=== PATIENT | female | born 1945 | race Two or more races ===

== ENCOUNTER 2021-09-15 18:23 | Inpatient (IN) | payer MEDICARE, OTHER ==
[~2021-09-15] VITALS: Ht 160 cm; Wt 64.0 kg
[2021-09-15 19:12] LABS: Basophils # (auto) 0 10 ^3/uL (0-0.2); Basophils % (auto) 0.7 % (0.0-2.0); Eosinophils # (auto) 0.1 10 ^3/uL (0-0.8); Eosinophils % (auto) 1.8 % (0.0-7.0); Hematocrit 38.9 % (36.0-46.0); Hemoglobin 13.1 g/dL (12.2-16.2); Lymphocytes # (auto) 1.1 10 ^3/uL (0.4-5.4); Lymphocytes % (auto) 29.2 % (10.0-50.0); Mean Corpuscular Hemoglobin 29.2 pg (28.0-32.0); Mean Corpuscular Hgb Conc. 33.6 g/dL (32.0-36.0); Monocytes # (auto) 0.4 10 ^3/uL (0-1.3); Monocytes % (auto) 9.9 % (0.0-12.0); Neutrophils # (auto) 2.3 10 ^3/uL (1.6-8.6); Neutrophils % (auto) 58.4 % (37.0-80.0); Red Blood Cells 4.47 10^6/uL (4.0-5.20); Red Cell Distribution Width 14.9 % (11.8-14.3); White Blood Cell 3.9 10^3/uL (4.4-10.8)
[2021-09-15 19:28] LABS: Urine Bacteria FEW /hpf (None Seen); Urine Blood Negative /uL (Negative); Urine Hyaline Cast FEW /lpf (0 - 2); Urine Mucus FEW (None Seen); Urine WBC 6 /hpf (0 - 5)
[2021-09-15 19:30] LABS: Albumin 3.6 g/dL (3.4-5.0); Anion Gap 8 (5-15); Blood Alcohol < 3.0 mg/dL (0-5); Blood Urea Nitrogen 33 mg/dL (7-18); Calcium 8.9 mg/dL (8.5-10.1); Carbon Dioxide 22 mmol/L (21-32); Chloride 110 mmol/L (98-107); Glucose 115 mg/dL (74-106); Potassium 3.9 mmol/L (3.5-5.1); Sodium 140 mmol/L (136-145)
[2021-09-15 19:33] LABS: Alanine Aminotransferase 46 U/L (13-56); Alkaline Phosphatase 66 U/L (45-117); Aspartate Aminotransferase 30 U/L (15-37); BUN/Creatinine Ratio 21.7; Bilirubin, Total 0.8 mg/dL (0.2-1.0); GFR African American 43 mL/min; GFR Non-African American 35 mL/min; Total Protein 7.2 g/dL (6.4-8.2)
[2021-09-15 19:39] LABS: Alcohol, Urine < 3.0 mg/dL (0-10); Amphetamine Screen, Urine NEGATIVE (NEGATIVE); Barbiturate Scree,Urine NEGATIVE (NEGATIVE); Benzodiazephine Screen, Urine POSITIVE (NEGATIVE); Cannabinoid Screen, Urine NEGATIVE (NEGATIVE); Cocaine Screen, Urine NEGATIVE (NEGATIVE); Opiate Scree,Urine NEGATIVE (NEGATIVE); Phencyclidine Screen, Urine NEGATIVE (NEGATIVE)
[2021-09-15] MEDS ORDERED: IOHEXOL 350 MG/ML 100ML IJ ONE (20:33)
[2021-09-15 20:44] LABS: INR 1.02 (0.9-1.15); Partial Thromboplastin Time 23.2 sec (23.6-33.0)
[2021-09-15] MEDS ORDERED: SODIUM CHLORIDE 0.9% 1,000 ML IV ONE (23:30)
[2021-09-16] MEDS ORDERED: ONDANSETRON HCL 4 MG/2 ML VIAL IV PRN (00:45)
[2021-09-16] MEDS ORDERED: cloNIDine HCL 0.1 MG TAB PO PRN (00:45)
[2021-09-16] MEDS ORDERED: ACETAMINOPHEN 325 MG TAB PO PRN (00:45)
[2021-09-16 05:00] VITALS: BP 161/68
[2021-09-16 08:00] VITALS: BP 152/68
[2021-09-16] MEDS: cefTRIAXone 1GM/50ML D5W 50 ML IV SCH (09:24)
[2021-09-16] MEDS: amLODIPine BESYLATE 5 MG TAB PO SCH (09:24)
[2021-09-16] MEDS: MEMANTINE HCL 5 MG TAB PO SCH (09:25)
[2021-09-16] MEDS: SERTRALINE HCL 50 MG TAB PO SCH (09:25)
[2021-09-16] MEDS: ENOXAPARIN SOD 30 MG/0.3 ML SYRINGE SC SCH (09:25)
[2021-09-16] MEDS ORDERED: PANTOPRAZOLE 40 MG TAB PO SCH (10:00)
[2021-09-16 12:00] VITALS: BP 152/75
[2021-09-16] MEDS: SOD CHL 0.45% 1,000 ML IV SCH (13:30)
[2021-09-16] MEDS ORDERED: AZITHROMYCIN 250 MG TAB PO ONE (13:45)
[2021-09-16 16:00] VITALS: BP 145/68
[2021-09-16 21:52] VITALS: BP 151/72
[2021-09-17] MEDS: DONEPEZIL HYDROCHLORIDE 5 MG TAB PO SCH ×2 (00:27→23:51)
[2021-09-17] MEDS: MEMANTINE HCL 5 MG TAB PO SCH ×3 (00:28→22:00)
[2021-09-17] MEDS: ATORVASTATIN 20 MG TAB PO SCH ×2 (00:28→23:52)
[2021-09-17] MEDS: METOPROLOL TARTRATE 25 MG TAB PO SCH ×3 (00:31→23:52)
[2021-09-17] MEDS: SOD CHL 0.45% 1,000 ML IV SCH ×2 (02:50→18:30)
[2021-09-17 05:05] VITALS: BP 135/68
[2021-09-17 06:59] LABS: Basophils # (auto) 0 10 ^3/uL (0-0.2); Basophils % (auto) 0.7 % (0.0-2.0); Eosinophils # (auto) 0.1 10 ^3/uL (0-0.8); Eosinophils % (auto) 1.5 % (0.0-7.0); Hematocrit 37.3 % (36.0-46.0); Hemoglobin 12.3 g/dL (12.2-16.2); Lymphocytes # (auto) 0.7 10 ^3/uL (0.4-5.4); Lymphocytes % (auto) 21.4 % (10.0-50.0); Mean Corpuscular Hemoglobin 28.9 pg (28.0-32.0); Mean Corpuscular Hgb Conc. 33.1 g/dL (32.0-36.0); Mean Corpuscular Volume 87.5 fL (80.0-100.0); Monocytes # (auto) 0.3 10 ^3/uL (0-1.3); Monocytes % (auto) 9.6 % (0.0-12.0); Neutrophils # (auto) 2.2 10 ^3/uL (1.6-8.6); Neutrophils % (auto) 66.8 % (37.0-80.0); Red Blood Cells 4.26 10^6/uL (4.0-5.20); Red Cell Distribution Width 15.2 % (11.8-14.3); White Blood Cell 3.4 10^3/uL (4.4-10.8)
[2021-09-17 07:21] LABS: BUN/Creatinine Ratio 21.8; Calcium 8.4 mg/dL (8.5-10.1); Potassium 4.1 mmol/L (3.5-5.1)
[2021-09-17 09:00] VITALS: BP 123/76
[2021-09-17] MEDS ORDERED: PATIENTS OWN MEDICATION PO SCH (10:00)
[2021-09-17] MEDS ORDERED: SERTRALINE HCL 50 MG TAB PO SCH (10:00)
[2021-09-17] MEDS: ENOXAPARIN SOD 30 MG/0.3 ML SYRINGE SC SCH (10:35)
[2021-09-17] MEDS: AZITHROMYCIN 250 MG TAB PO SCH (10:36)
[2021-09-17] MEDS: SERTRALINE HCL 50 MG TAB PO SCH (10:40)
[2021-09-17] MEDS: amLODIPine BESYLATE 5 MG TAB PO SCH (10:43)
[2021-09-17] MEDS: TAGRISSO 80 MG PO SCH (10:45)
[2021-09-17] MEDS: cefTRIAXone 1GM/50ML D5W 50 ML IV SCH (11:34)
[2021-09-17 13:00] VITALS: BP 151/96
[2021-09-17 17:00] VITALS: BP 150/78
[2021-09-17 22:00] VITALS: BP 132/70
[2021-09-18 05:19] VITALS: BP 140/82
[2021-09-18 09:00] VITALS: BP 138/57
[2021-09-18] MEDS: cefTRIAXone 1GM/50ML D5W 50 ML IV SCH (10:37)
[2021-09-18] MEDS: METOPROLOL TARTRATE 25 MG TAB PO SCH ×2 (10:37→22:00)
[2021-09-18] MEDS: SERTRALINE HCL 50 MG TAB PO SCH (10:39)
[2021-09-18] MEDS: MEMANTINE HCL 5 MG TAB PO SCH ×2 (10:39→23:09)
[2021-09-18] MEDS: AZITHROMYCIN 250 MG TAB PO SCH (10:39)
[2021-09-18] MEDS: amLODIPine BESYLATE 5 MG TAB PO SCH (10:40)
[2021-09-18] MEDS: ENOXAPARIN SOD 40 MG/0.4 ML SYRINGE SC SCH (10:41)
[2021-09-18] MEDS: TAGRISSO 80 MG PO SCH (12:52)
[2021-09-18 13:00] VITALS: BP 108/54
[2021-09-18 17:00] VITALS: BP 108/71
[2021-09-18] MEDS: SOD CHL 0.45% 1,000 ML IV SCH (19:02)
[2021-09-18 22:00] VITALS: BP 99/51
[2021-09-18] MEDS: ATORVASTATIN 20 MG TAB PO SCH (23:00)
[2021-09-18] MEDS: DONEPEZIL HYDROCHLORIDE 5 MG TAB PO SCH (23:00)
[2021-09-19 05:00] VITALS: BP 133/74
[2021-09-19 09:00] VITALS: BP 94/56
[2021-09-19] MEDS: amLODIPine BESYLATE 5 MG TAB PO SCH (10:00)
[2021-09-19] MEDS: SERTRALINE HCL 50 MG TAB PO SCH (10:12)
[2021-09-19] MEDS: ENOXAPARIN SOD 40 MG/0.4 ML SYRINGE SC SCH (10:12)
[2021-09-19] MEDS: AZITHROMYCIN 250 MG TAB PO SCH (10:13)
[2021-09-19] MEDS: MEMANTINE HCL 5 MG TAB PO SCH ×2 (10:13→21:36)
[2021-09-19] MEDS: METOPROLOL TARTRATE 25 MG TAB PO SCH ×2 (10:14→21:36)
[2021-09-19] MEDS: cefTRIAXone 1GM/50ML D5W 50 ML IV SCH (10:15)
[2021-09-19] MEDS: TAGRISSO 80 MG PO SCH (10:54)
[2021-09-19 13:00] VITALS: BP 117/72
[2021-09-19] MEDS: SOD CHL 0.45% 1,000 ML IV SCH (15:37)
[2021-09-19 17:00] VITALS: BP 133/64
[2021-09-19 20:00] VITALS: BP 116/63
[2021-09-19 21:29] VITALS: BP 116/63
[2021-09-19] MEDS: ATORVASTATIN 20 MG TAB PO SCH (21:36)
[2021-09-19] MEDS: DONEPEZIL HYDROCHLORIDE 5 MG TAB PO SCH (21:36)
[2021-09-20 05:28] VITALS: BP 162/84
[2021-09-20 08:30] VITALS: BP 143/67
[2021-09-20 09:00] VITALS: BP 143/67
[2021-09-20] MEDS: SERTRALINE HCL 50 MG TAB PO SCH (09:55)
[2021-09-20] MEDS: AZITHROMYCIN 250 MG TAB PO SCH (09:56)
[2021-09-20] MEDS: MEMANTINE HCL 5 MG TAB PO SCH (09:57)
[2021-09-20] MEDS: amLODIPine BESYLATE 5 MG TAB PO SCH (09:59)
[2021-09-20] MEDS: ENOXAPARIN SOD 40 MG/0.4 ML SYRINGE SC SCH (10:00)
[2021-09-20] MEDS: cefTRIAXone 1GM/50ML D5W 50 ML IV SCH (10:02)
[2021-09-20] MEDS: METOPROLOL TARTRATE 25 MG TAB PO SCH (10:44)
[2021-09-20] MEDS: TAGRISSO 80 MG PO SCH (11:08)
[2021-09-20 12:38] VITALS: BP 134/71
[2021-09-20 13:46] VITALS: BP 134/71
[2021-09-20 16:46] VITALS: BP 140/69
== END 2021-09-20 17:30 | DRG 70 ==
LOC: EDBD 18:23 → ER 18:23 → OVERFLOW 09-16 00:39 → CENTRAL 09-16 03:00
PROVIDERS: ADMIT Nurse Practitioner; ATTEND Internal Medicine
DX: G93.41 Metabolic encephalopathy (principal); J18.9 Pneumonia, unspecified organism; N39.0 Urinary tract infection, site not specified; N17.9 Acute kidney failure, unspecified; C34.91 Malignant neoplasm of unspecified part of right bronchus or lung; E78.5 Hyperlipidemia, unspecified; M16.0 Bilateral primary osteoarthritis of hip; N18.9 Chronic kidney disease, unspecified; E86.0 Dehydration; I12.9 Hypertensive chronic kidney disease with stage 1 through stage 4 chronic kidney disease, or unspecified chronic kidney disease; F32.A Depression, unspecified; Z20.822 Contact with and (suspected) exposure to COVID-19; G30.9 Alzheimer's disease, unspecified; F02.80 Dementia in other diseases classified elsewhere, unspecified severity, without behavioral disturbance, psychotic disturbance, mood disturbance, and anxiety; Z85.118 Personal history of other malignant neoplasm of bronchus and lung; Z68.25 Body mass index [BMI] 25.0-25.9, adult
CPT/HCPCS: 36415; 70450; 71045; 71260; 74177; 80048; 80053; 80307; 80320; 81001; 82140; 83605; 83690; 84484; 85025; 85610; 85730; 87040; 87804; 93005; 93306; 96361; 96365; 97116; 97163; 97530; G0378; J0696